=== PATIENT | female | born 1985 ===

== ENCOUNTER 2017-04-30 18:25 | Emergency (ER) | payer OTHER ==
[2017-04-30 18:36] VITALS: BP 117/78; PULSE 75; RESP 16; TEMP 98; O2SAT 100
--- NOTE | 2017-04-30 19:40 | ED PDOC ---
HPI: General Adult Time Seen by Provider: 04/30/17 18:44 Chief Complaint (Nursing): Female Genitourinary History Per: Patient Additional Complaint(s): Pt. states for the past 2 weeks she's had intermittent vaginal spotting and today while in ED she started her period. Reports that she's had suprapubic pain with the spotting. Denies N/V/D, fever, dysuria, hematuria, frequency, urgency, rash, abdominal pain. Of note, pt. denies hx of prolapse. Past Medical History Reviewed: Historical Data, Nursing Documentation, Vital Signs Vital Signs: Last Vital Signs Temp 98.0 F 04/30/17 18:33 Pulse 75 04/30/17 18:33 Resp 16 04/30/17 18:33 BP 117/78 04/30/17 18:33 Pulse Ox 100 04/30/17 19:41 - Family History Family History: States: No Known Family Hx - Home Medications Home Medications: Ambulatory Orders Medication Instructions Recorded Vit No.126/Iron/Folic 1 tab PO DAILY 11/04/15 [Prenavite] Docusate [Colace] 100 mg PO BID PRN #30 cap 11/07/15 Ibuprofen [Motrin Tab] 600 mg PO Q6H PRN #40 tab 11/07/15 methIMAzole [Tapazole] 20 mg PO DAILY@2200 #0 tab 11/07/15 oxyCODONE/Acetaminophen [Percocet 1 tab PO Q6 PRN #20 tab 11/07/15 5/325 mg Tab] - Allergies Allergies/Adverse Reactions: Allergies Allergy/AdvReac Type Severity Reaction Status Date / Time No Known Allergies Allergy Verified 11/04/15 11:58 Review of Systems ROS Statement: Except As Marked, All Systems Reviewed And Found Negative Genitourinary Female: Positive for: Pelvic Pain Physical Exam - Physical Exam Appears: Positive for: Well, Non-toxic, No Acute Distress Skin: Positive for: Normal Color, Warm. Negative for: Rash Eye Exam: Positive for: Normal appearance Neck: Positive for: Normal, Painless ROM Cardiovascular/Chest: Positive for: Regular Rate, Rhythm Respiratory: Positive for: CNT, Normal Breath Sounds Gastrointestinal/Abdominal: Positive for: Normal Exam, Bowel Sounds, Soft. Negative for: Tenderness Back: Positive for: Normal Inspection. Negative for: L CVA Tenderness, R CVA Tenderness Extremity: Positive for: Normal ROM Neurologic/Psych: Positive for: Alert, Oriented - ECG O2 Sat by Pulse Oximetry: 100 - Progress ED Course And Treament: Labs ordered. TVUS ordered. Disposition - Clinical Impression Clinical Impression: Dysmenorrhea - Patient ED Disposition Is Patient to be Admitted: Transfer of Care (Signed out to Manav GUERRA pending labs, US and final disposition.) - Disposition Disposition Time: 20:00 Condition: STABLE Forms: [facility] ([place]riac)
[2017-04-30 20:34] LABS: BASO % 0.4 % (0.0-2.0); HEMATOCRIT 34.3 % (34.0-47.0); LYMPH # 1.6 K/uL (1.0-4.3); LYMPH % 20.9 % (20.0-40.0); MEAN CELL VOLUME 78.6 fl (81.0-99.0); MEAN CORPUSCULAR HEMOGLOBIN 25.6 pg (27.0-31.0); MEAN CORPUSCULAR HGB CONC 32.6 g/dL (33.0-37.0); MEAN PLATELET VOLUME 9.3 fl (7.2-11.7); MONO # 0.6 K/uL (0.0-0.8); NEUT # 5.6 K/uL (1.8-7.0); NEUT % 71.7 % (50.0-75.0); NRBC % 0.1 % (0.0-0.0); RED CELL DISTRIBUTION WIDTH 14.4 % (11.5-14.5); WHITE BLOOD COUNT 7.9 K/uL (4.8-10.8)
[2017-04-30 20:36] LABS: RBC URINE < 1 /hpf (0-3); URINE BILIRUBIN NEGATIVE (NEGATIVE); URINE BLOOD SMALL (NEGATIVE); URINE COLOR STRAW (YELLOW); URINE GLUCOSE (UA) NEG (Normal); URINE KETONE NEGATIVE (NEGATIVE); URINE LEUKOCYTE ESTERASE NEG Leu/uL (Negative); URINE PROTEIN NEGATIVE (NEGATIVE); URINE UROBILINOGEN 0.2-1.0 mg/dL (0.2-1.0); WBC URINE < 1 /hpf (0-5)
[2017-04-30 20:42] LABS: ALB/GLOB RATIO 1.4 (1.0-2.1); ALKALINE PHOSPHATASE 73 U/L (38-126); ALT/SGPT 28 U/L (9-52); AST/SGOT 21 U/L (14-36); BILIRUBIN,TOTAL 0.2 mg/dl (0.2-1.3); BLOOD UREA NITROGEN 12 mg/dl (7-17); CALCIUM 9.1 mg/dL (8.4-10.2); CARBON DIOXIDE 24 mmol/L (22-30); CHLORIDE 105 mmol/L (98-107); GFR AFRICAN-AMERICAN > 60; GLUCOSE,RANDOM 118 mg/dL (65-105); SODIUM 142 mmol/l (132-148); TOTAL PROTEIN 7.8 G/DL (6.3-8.2)
--- NOTE | 2017-04-30 21:16 | ED PDOC ---
- Laboratory Results Result Diagrams: 04/30/17 20:20 04/30/17 20:20 - ECG O2 Sat by Pulse Oximetry: 100 Medical Decision Making Medical Decision Making: Case endorsed to web content writer from MARI Roman at 1999 pending diagnostic review and re-eval US IMPRESSION: 1. Low lying IUD in the lower uterine segment. 2. Right ovarian complex cyst measuring 2.5 x 2.7 x 1.7 cm. 3. Complex structure adjacent to the right ovary and uterus with vascularity measuring 5.0 x 3.6 x 5.2 cm and is of uncertain etiology but may reflect an exophytic uterine fibroid. 4. Otherwise negative pelvic sonogram. The left ovary is not seen. Disposition - Clinical Impression Clinical Impression: Dysmenorrhea - Disposition Condition: STABLE Forms: [facility] [employer] [facility] [employer] [facility] (Italian)
--- NOTE | 2017-05-01 11:30 | US ---
HISTORY: Pelvic pain. LMP 04/30/2017 COMPARISON: None available. TECHNIQUE: Transvaginal only. Real -time technique with 2D, duplex and color Doppler FINDINGS: UTERUS: Measures 5.1 x 6.2 x 10.8 cm. Normal in size and appearance. No fibroid or other mass lesion seen. ENDOMETRIUM: Measures 19.4 mm in diameter. 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 Otherwise unremarkable endometrium. CERVIX: No cervical abnormality identified. RIGHT OVARY: Measures 4 x 2.5 x 4.1 cm. No solid mass. Normal flow. Plaques, likely hemorrhagic cyst 2.5 x 1.7 x 2.7 cm LEFT OVARY: Not visualized FREE FLUID: No significant free fluid noted. OTHER FINDINGS: Complex hypervascular solid mass adjacent to the right ovary interposed between the right adnexa and uterus 3.6 x 5.2 x 5 cm IMPRESSION: Low-lying intrauterine contraceptive device. Complex presumed hemorrhagic cyst right adnexa. Solid and hypervascular mass right hemipelvis. Limitations of the current examination: Non visualization left adnexa Concordant results (preliminary interpretation) provided by [facility]. Procedure Completed: 21:42 Preliminary ([facility]) Report: Dictated and Authenticated: 22:19 Final Interpretation: 11:38. May 01, 2017.
== END 2017-04-30 23:09 | disposition home or self-care (01) ==
LOC: H.ER 18:25
DX: N94.6 Dysmenorrhea, unspecified (principal)